=== PATIENT | female | born 1965 | race Hispanic/Latino ===

== ENCOUNTER 2021-05-26 06:26 | Day surgery (SDC) | payer OTHER ==
[2021-05-24 10:00] LABS: BASOPHILS % (AUTO) 1.8 % (0.0-5.0); EOSINOPHILS % (AUTO) 5.1 % (0.0-8.0); HEMATOCRIT 43.4 % (36-48); LYMPHOCYTES % (AUTO) 32.4 % (21.0-51.0); MEAN CORPUSCULAR HEMOGLOBIN 29.3 pg (27.0-33.0); MEAN CORPUSCULAR HGB CONC 32.5 g/dL (32.0-36.0); NEUTROPHILS % (AUTO) 54.5 % (40.0-77.0); PLATELET COUNT (AUTO) 323 K/uL (130-400); RED BLOOD CELL COUNT(AUTO) 4.82 MIL/uL (4.00-5.50); RED CELL DISTRIBUTION WIDTH 13.5 % (11.0-15.5); WHITE BLOOD COUNT (AUTO) 5.7 K/uL (4.8-10.8)
[2021-05-25 08:32] VITALS: BP 169/77
[2021-05-26] VITALS (12 sets, daily range): BP systolic 98–127; BP diastolic 64–79
[~2021-05-26] VITALS: Ht 160 cm; Wt 75.6 kg
[~2021-05-26 06:26] MED LIST: CALDOLOR 800MG+NS 250ML 250 ML IV SCH; CEFAZOLIN SODIUM 1 GM VIAL IVP SCH; EZETIMIBE PO; FAMOTIDINE PO; HYDROXYCHLOROQUINE PO; LACTATED RINGERS 1000ML 1,000 ML IV SCH; MAGNESIUM PO; TURMERIC PO; VITAMIN B PO; VITAMIN C PO; VITAMIN D PO; ZINC PO
[2021-05-26] MEDS ORDERED: STRONG IODINE SOLN 14ML BOTTLE ONE (07:07)
[2021-05-26] MEDS ORDERED: SUCCINYLCHOLINE 200MG/10ML SYR ONE (07:51)
[2021-05-26] MEDS ORDERED: LIDOCAINE PF 100MG/5ML (2%) SYRINGE 5ML ONE (07:51)
[2021-05-26] MEDS ORDERED: PROPOFOL 10 MG/ML 20ML VIAL IV ONE (07:52)
[2021-05-26] MEDS ORDERED: MIDAZOLAM HCL 1 MG/ML 2ML VIAL ONE (07:52)
[2021-05-26] MEDS ORDERED: ROCURONIUM 10MG/1ML SYR 10 MG/ML ML ONE (07:52)
[2021-05-26] MEDS ORDERED: FENTANYL CITRATE PF 50 MCG/1 ML 2ML VIAL ONE (08:03)
[2021-05-26] MEDS ORDERED: CEFAZOLIN SODIUM 2 GM VIAL IV ONE (08:05)
[2021-05-26] MEDS ORDERED: GLYCOPYRROLATE 1 MG/5 ML SYRINGE ONE (08:32)
[2021-05-26] MEDS ORDERED: NEOSTIGMINE 5MG/5ML SYR IV ONE (08:32)
[2021-05-26] MEDS ORDERED: EZET10TA48 PO (09:12)
[2021-05-26] MEDS ORDERED: FAMO40TA7 PO (09:12)
[2021-05-26] MEDS ORDERED: HYDR200T4 PO (09:12)
== END 2021-05-26 09:53 | disposition home or self-care (01) ==
LOC: DAH 06:26
PROVIDERS: ATTEND Obstetrics & Gynecology
DX: N87.9 Dysplasia of cervix uteri, unspecified (principal); Z20.822 Contact with and (suspected) exposure to COVID-19; E66.9 Obesity, unspecified; E78.00 Pure hypercholesterolemia, unspecified; M06.9 Rheumatoid arthritis, unspecified; Z98.890 Other specified postprocedural states; Z98.891 History of uterine scar from previous surgery; Z83.3 Family history of diabetes mellitus; Z80.1 Family history of malignant neoplasm of trachea, bronchus and lung; Z80.7 Family history of other malignant neoplasms of lymphoid, hematopoietic and related tissues; Z79.899 Other long term (current) drug therapy; Z68.29 Body mass index [BMI] 29.0-29.9, adult
CPT/HCPCS: 36415; 57520; 84703; 85025; 86850; 86900; 86901; 87635; A4215; A4221; A4222; A4223; A4351; A4663; A6260; C9803; J0330; J0690 ×2; J1741; J2001; J2250; J2704; J2710; J3010; J3490; J7120

== ENCOUNTER → 2024-01-18 | Outpatient (CLI) | payer OTHER ==
[~2024-01-18] MED LIST changes: -CALDOLOR 800MG+NS 250ML 250 ML IV SCH; -CEFAZOLIN SODIUM 1 GM VIAL IVP SCH; +EZET10TA48 PO; -EZETIMIBE PO; +FAMO40TA7 PO; -FAMOTIDINE PO; +HYDR200T75 PO; -HYDROXYCHLOROQUINE PO; -LACTATED RINGERS 1000ML 1,000 ML IV SCH
== END | disposition home or self-care (01) ==
LOC: RAH 09:14
PROVIDERS: ATTEND Family Medicine
DX: Z13.6 Encounter for screening for cardiovascular disorders (principal)
CPT/HCPCS: 75571